=== PATIENT | female | born 1945 | race Caucasian/White ===

== ENCOUNTER 2020-06-07 09:42 | Inpatient (IN) ==
[2020-06-09] MEDS: *HR* OxyCODONE/APAP 5/325 TABLET PO PRN ×2 (00:47→20:58)
[2020-06-09 05:55] LABS: Bilirubin,Urine Negative (Negative); Blood,Urine Trace-intact (Negative); Clarity,Urine Clear (Clear); Glucose,Urine (UA) Normal (Normal); Ketones,Urine Negative (Negative); Leukocyte Esterase,Urine Negative (Negative); Nitrite,Urine Negative (Negative); Protein,Urine Negative (Neg-Trace); Urobilinogen,Urine Normal (Normal)
[2020-06-09 05:56] LABS: Color,Urine Yellow (Yellow)
[2020-06-09 06:03] LABS: Amorphous Sediment,Urine Few per hpf (None-Few); Budding Yeast,Urine Few per hpf (None Seen); RBC,Urine 0-3 per hpf (0-3)
[2020-06-09 06:50] LABS: Basophils % 0.4 %; Eosinophils # 0.2 K/mcL (0.0-0.6); Eosinophils % 3.6 %; Hematocrit 23.7 % (35.3-44.9); Hemoglobin 7.8 g/dL (11.5-15.4); Immature Granulocytes % 0.4 % (0-4); Lymphocytes # 0.9 K/mcL (0.6-4.6); Lymphocytes % 17.7 %; Mean Corpuscular HGB Conc 32.9 g/dL (31.6-35.5); Mean Corpuscular Hemoglobin 30.5 pg (28.0-33.3); Mean Corpuscular Volume 92.6 fL (83.0-100.0); Monocytes # 0.6 K/mcL (0.0-1.3); Monocytes % 12.3 %; Neutrophils # 3.3 K/mcL (1.6-8.9); Platelet Count 189 K/mcL (140-400); Red Blood Count 2.56 M/mcL (3.82-4.97); Red Cell Distribution Width 14.3 % (11.5-14.5); Segmented Neutrophils % 65.6 %
[2020-06-09 07:04] LABS: BUN/Creatinine Ratio 23 (6-26); Blood Urea Nitrogen 16 mg/dL (8-23); Carbon Dioxide 33 mEq/L (23-29); Chloride 100 mEq/L (98-107); Glucose 109 mg/dL (70-105); Osmolality,Calculated 288 (280-300); Potassium 3.1 mEq/L (3.5-5.1); Sodium 138 mEq/L (136-145); eGFR For African Americans > 60 (> 60); eGFR For Non-African Americans > 60 (> 60)
[2020-06-09] MEDS: BuPROPion SR (12 HR) 150 MG TABLET PO SCH ×2 (10:22→20:58)
[2020-06-09] MEDS: Aspirin Enteric Coated 325 MG Tablet PO SCH (10:23)
[2020-06-10] MEDS: *HR* OxyCODONE/APAP 5/325 TABLET PO PRN ×3 (02:51→22:50)
[2020-06-10 06:01] LABS: Basophils % 0.4 %; Eosinophils # 0.2 K/mcL (0.0-0.6); Eosinophils % 2.7 %; Hemoglobin 7.8 g/dL (11.5-15.4); Immature Granulocytes % 0.5 % (0-4); Lymphocytes % 17.3 %; Mean Corpuscular HGB Conc 32.5 g/dL (31.6-35.5); Mean Corpuscular Hemoglobin 30.4 pg (28.0-33.3); Mean Corpuscular Volume 93.4 fL (83.0-100.0); Mean Platelet Volume 9.1 fL (9.4-12.4); Monocytes # 0.6 K/mcL (0.0-1.3); Monocytes % 11.5 %; Neutrophils # 3.7 K/mcL (1.6-8.9); Platelet Count 194 K/mcL (140-400); Red Blood Count 2.57 M/mcL (3.82-4.97); Red Cell Distribution Width 14.2 % (11.5-14.5); Segmented Neutrophils % 67.6 %; White Blood Count 5.5 K/mcL (4.3-11.1)
[2020-06-10 06:19] LABS: BUN/Creatinine Ratio 16 (6-26); Blood Urea Nitrogen 14 mg/dL (8-23); Calcium 8.1 mg/dL (8.6-10.3); Carbon Dioxide 33 mEq/L (23-29); Chloride 99 mEq/L (98-107); Glucose 102 mg/dL (70-105); Osmolality,Calculated 285 (280-300); Sodium 137 mEq/L (136-145); eGFR For African Americans > 60 (> 60); eGFR For Non-African Americans > 60 (> 60)
[2020-06-10] MEDS: Aspirin Enteric Coated 325 MG Tablet PO SCH (08:22)
[2020-06-10] MEDS: BuPROPion SR (12 HR) 150 MG TABLET PO SCH ×2 (08:22→22:50)
[2020-06-11 08:41] LABS: Basophils % 0.5 %; Eosinophils # 0.2 K/mcL (0.0-0.6); Eosinophils % 2.8 %; Hematocrit 25.5 % (35.3-44.9); Hemoglobin 8.3 g/dL (11.5-15.4); Immature Granulocytes % 0.5 % (0-4); Lymphocytes % 14.9 %; Mean Corpuscular HGB Conc 32.5 g/dL (31.6-35.5); Mean Corpuscular Hemoglobin 30.5 pg (28.0-33.3); Mean Corpuscular Volume 93.8 fL (83.0-100.0); Monocytes # 0.7 K/mcL (0.0-1.3); Monocytes % 11.3 %; Neutrophils # 4.5 K/mcL (1.6-8.9); Platelet Count 243 K/mcL (140-400); Red Blood Count 2.72 M/mcL (3.82-4.97); Red Cell Distribution Width 14.6 % (11.5-14.5); White Blood Count 6.4 K/mcL (4.3-11.1)
[2020-06-11 08:51] LABS: BUN/Creatinine Ratio 23 (6-26); Blood Urea Nitrogen 18 mg/dL (8-23); Calcium 8.2 mg/dL (8.6-10.3); Carbon Dioxide 34 mEq/L (23-29); Chloride 101 mEq/L (98-107); Glucose 89 mg/dL (70-105); Osmolality,Calculated 291 (280-300); Potassium 3.7 mEq/L (3.5-5.1); Sodium 140 mEq/L (136-145); eGFR For African Americans > 60 (> 60); eGFR For Non-African Americans > 60 (> 60)
[2020-06-11] MEDS: Aspirin Enteric Coated 325 MG Tablet PO SCH (09:14)
[2020-06-11] MEDS: BuPROPion SR (12 HR) 150 MG TABLET PO SCH ×2 (09:14→22:22)
[2020-06-11] MEDS: *HR* OxyCODONE/APAP 5/325 TABLET PO PRN ×2 (16:26→22:23)
[2020-06-12] MEDS: BuPROPion SR (12 HR) 150 MG TABLET PO SCH ×2 (10:30→20:30)
[2020-06-12] MEDS: Aspirin Enteric Coated 325 MG Tablet PO SCH (10:30)
[2020-06-12] MEDS: *HR* OxyCODONE/APAP 5/325 TABLET PO PRN ×2 (11:32→20:30)
[2020-06-13] MEDS: *HR* OxyCODONE/APAP 5/325 TABLET PO PRN ×3 (04:37→18:37)
[2020-06-13 05:48] LABS: Basophils % 0.5 %; Eosinophils # 0.2 K/mcL (0.0-0.6); Eosinophils % 2.4 %; Hematocrit 24.1 % (35.3-44.9); Hemoglobin 7.7 g/dL (11.5-15.4); Immature Granulocytes % 0.5 % (0-4); Lymphocytes # 1.4 K/mcL (0.6-4.6); Lymphocytes % 22.3 %; Mean Corpuscular Hemoglobin 30.1 pg (28.0-33.3); Mean Corpuscular Volume 94.1 fL (83.0-100.0); Mean Platelet Volume 9.1 fL (9.4-12.4); Monocytes # 0.7 K/mcL (0.0-1.3); Monocytes % 11.6 %; Neutrophils # 3.8 K/mcL (1.6-8.9); Platelet Count 268 K/mcL (140-400); Red Blood Count 2.56 M/mcL (3.82-4.97); Red Cell Distribution Width 14.6 % (11.5-14.5); Segmented Neutrophils % 62.7 %; White Blood Count 6.1 K/mcL (4.3-11.1)
[2020-06-13 06:05] LABS: Alanine Aminotransferase 10 Units/L (7-52); Albumin 2.9 g/dL (3.5-5.7); Albumin/Globulin Ratio 1.2 (1.1-2.2); Alkaline Phosphatase 53 Units/L (34-104); Aspartate Amino Transferase 19 Units/L (13-39); BUN/Creatinine Ratio 28 (6-26); Bilirubin,Total 0.5 mg/dL (0.3-1.0); Blood Urea Nitrogen 25 mg/dL (8-23); Calcium 8.3 mg/dL (8.6-10.3); Carbon Dioxide 30 mEq/L (23-29); Chloride 101 mEq/L (98-107); Globulin 2.5 g/dL (2.4-3.5); Glucose 101 mg/dL (70-105); Osmolality,Calculated 291 (280-300); Potassium 4.4 mEq/L (3.5-5.1); Sodium 138 mEq/L (136-145); Total Protein 5.4 g/dL (6.4-8.9); eGFR For African Americans > 60 (> 60); eGFR For Non-African Americans > 60 (> 60)
[2020-06-13] MEDS: Aspirin Enteric Coated 325 MG Tablet PO SCH (07:56)
[2020-06-13] MEDS: BuPROPion SR (12 HR) 150 MG TABLET PO SCH ×2 (07:56→20:29)
[2020-06-13] MEDS ORDERED: haloperidoL 1 MG TABLET PO ONE (20:01)
[2020-06-14] MEDS: BuPROPion SR (12 HR) 150 MG TABLET PO SCH ×2 (08:36→20:46)
[2020-06-14] MEDS: *HR* OxyCODONE/APAP 5/325 TABLET PO PRN ×2 (10:02→18:06)
[2020-06-15] MEDS: BuPROPion SR (12 HR) 150 MG TABLET PO SCH ×2 (09:34→19:44)
[2020-06-15 10:48] LABS: Basophils % 0.5 %; Eosinophils # 0.1 K/mcL (0.0-0.6); Eosinophils % 1.5 %; Hematocrit 27.8 % (35.3-44.9); Hemoglobin 8.8 g/dL (11.5-15.4); Immature Granulocytes % 0.5 % (0-4); Lymphocytes % 15.3 %; Mean Corpuscular HGB Conc 31.7 g/dL (31.6-35.5); Mean Corpuscular Hemoglobin 30.2 pg (28.0-33.3); Mean Corpuscular Volume 95.5 fL (83.0-100.0); Monocytes # 0.5 K/mcL (0.0-1.3); Monocytes % 7.9 %; Neutrophils # 4.9 K/mcL (1.6-8.9); Platelet Count 365 K/mcL (140-400); Red Blood Count 2.91 M/mcL (3.82-4.97); Red Cell Distribution Width 14.8 % (11.5-14.5); Segmented Neutrophils % 74.3 %; White Blood Count 6.6 K/mcL (4.3-11.1)
[2020-06-15 10:55] LABS: Alanine Aminotransferase 10 Units/L (7-52); Albumin 3.2 g/dL (3.5-5.7); Albumin/Globulin Ratio 1.1 (1.1-2.2); Alkaline Phosphatase 59 Units/L (34-104); Aspartate Amino Transferase 20 Units/L (13-39); BUN/Creatinine Ratio 24 (6-26); Bilirubin,Direct 0.1 mg/dL (0.0-0.2); Bilirubin,Indirect 0.4 mg/dL (0.0-1.0); Bilirubin,Total 0.5 mg/dL (0.3-1.0); Blood Urea Nitrogen 22 mg/dL (8-23); Calcium 8.6 mg/dL (8.6-10.3); Carbon Dioxide 31 mEq/L (23-29); Chloride 100 mEq/L (98-107); Globulin 2.9 g/dL (2.4-3.5); Glucose 97 mg/dL (70-105); Osmolality,Calculated 287 (280-300); Potassium 3.7 mEq/L (3.5-5.1); Sodium 137 mEq/L (136-145); Total Protein 6.1 g/dL (6.4-8.9); eGFR For African Americans > 60 (> 60); eGFR For Non-African Americans > 60 (> 60)
[2020-06-16] MEDS: *HR* OxyCODONE/APAP 5/325 TABLET PO PRN (02:09)
[2020-06-16] MEDS: BuPROPion SR (12 HR) 150 MG TABLET PO SCH ×2 (11:37→21:26)
[2020-06-16] MEDS: Acetaminophen 325 MG TABLET PO PRN (21:26)
[2020-06-17] MEDS: Acetaminophen 325 MG TABLET PO PRN ×3 (04:40→20:44)
[2020-06-17] MEDS: BuPROPion SR (12 HR) 150 MG TABLET PO SCH ×2 (10:41→20:45)
[2020-06-17 13:06] LABS: Bilirubin,Urine Negative (Negative); Blood,Urine Negative (Negative); Clarity,Urine Clear (Clear); Color,Urine Yellow (Yellow); Glucose,Urine (UA) Normal (Normal); Ketones,Urine Negative (Negative); Leukocyte Esterase,Urine Small (Negative); Nitrite,Urine Positive (Negative); PH,Urine 7.5 pH Units (5.0-8.0); Protein,Urine Negative (Neg-Trace); Urobilinogen,Urine Normal (Normal)
[2020-06-17 13:09] LABS: Bacteria,Urine Moderate per hpf (None-Few); RBC,Urine 0-3 per hpf (0-3); Squamous Epithelial Cell,Urine Few per hpf (None-Few)
[2020-06-18] MEDS: Acetaminophen 325 MG TABLET PO PRN (07:09)
[2020-06-18] MEDS: BuPROPion SR (12 HR) 150 MG TABLET PO SCH (09:34)
[2020-06-18 11:29] VITALS: BP 105/58
== END 2020-06-18 13:15 | DRG 560 ==
LOC: INPGRE 06-08 19:29
PROVIDERS: ADMIT Family Medicine; ATTEND Family Medicine